=== PATIENT | male | born 1975 | race African-American/Black ===

== ENCOUNTER 2017-03-20 21:50 | Observation (INO) ==
[2017-03-20] MEDS ORDERED: ASPIRIN PO STA (22:11)
[2017-03-20 22:25] LABS: MANUAL DIFF NEEDED? NO
--- NOTE | 2017-03-20 22:27 | EKG Report ---
Test Performed on : 03/20/2017 10:05:29 PM Test Reason : CP Blood Pressure : / mmHG Vent. Rate : 074 BPM Atrial Rate : 074 BPM P-R Int : 140 ms QRS Dur : 090 ms QT Int : 362 ms P-R-T Axes : 065 049 030 degrees QTc Int : 401 ms Normal sinus rhythm. T wave abnormality, consider anterolateral ischemia Abnormal ECG No previous ECGs available Unconfirmed Result
[2017-03-20] MEDS ORDERED: LOPRESSOR PO ONE (22:40)
[2017-03-20] MEDS ORDERED: NITROGLYCERIN TOP ONE (22:40)
[2017-03-20 22:42] LABS: INR 0.84 (0.86-1.15); PROTIME 12.2 Seconds (12.1-15.5)
[2017-03-20 22:43] LABS: PTT PL 28.1 Seconds (22.6-43.9)
[2017-03-20 22:50] LABS: ALBUMIN 4.6 g/dL (3.5-5.0); CALCIUM 9.9 mg/dL (8.8-10.2); MAGNESIUM 1.9 mg/dL (1.5-2.7); POTASSIUM 3.5 mmol/L (3.5-5.1); TOTAL BILIRUBIN 0.5 mg/dL (0.20-1.00); TOTAL PROTEIN 7.6 g/dL (6.3-8.3)
[2017-03-20 22:52] LABS: BASO% 0.8 % (0.0-0.8); EOS# 0.84 X1000 (0.0-0.7); EOS% 8.3 % (0.0-10.0); HEMATOCRIT 45.7 % (42.0-52.0); IMM GRAN# 0.11 X1000 (0.0-0.04); IMM GRAN% 1.1 % (0.0-0.5); LYMPH# 3.74 X1000 (1.2-3.4); LYMPH% 36.9 % (20.5-51.1); MCV 88.6 FL (81-99); MONO# 0.93 X1000 (0.11-0.59); MONO% 9.2 % (1.7-9.3); MPV 9.9 FL (7.4-10.4); NEUT% 43.7 % (42.2-75.2); PLT 241 X1000 (130-400); RBC 5.16 XMIL (4.7-6.1)
[2017-03-20 23:10] LABS: CK INDEX 0.9 (0.0-2.5); CK-MB 2.47 ng/mL (0.0-5.0)
[2017-03-20] MEDS ORDERED: APRESOLINE IV ONE (23:29)
[2017-03-21 00:34] LABS: CK-MB 2.23 ng/mL (0.0-5.0)
--- NOTE | 2017-03-21 00:54 | EKG Report ---
Test Performed on : 03/20/2017 11:49:21 PM Test Reason : 2HR REPEAT Blood Pressure : / mmHG Vent. Rate : 075 BPM Atrial Rate : 075 BPM P-R Int : 142 ms QRS Dur : 088 ms QT Int : 380 ms P-R-T Axes : 061 055 070 degrees QTc Int : 424 ms Normal sinus rhythm. T wave abnormality, consider anterolateral ischemia Abnormal ECG When compared with ECG of 20-MAR-2017 22:05, (Unconfirmed) No significant change was found Unconfirmed Result
[2017-03-21] MEDS ORDERED: ZOFRAN IV PRN (00:59)
[2017-03-21] MEDS ORDERED: NS 1,000 ML IV ONE (00:59)
[2017-03-21] MEDS ORDERED: NITROGLYCERIN SL PRN (00:59)
[2017-03-21] MEDS: TYLENOL PO PRN ×2 (02:27→07:56)
--- NOTE | 2017-03-21 05:16 | Diag Imaging Result Doc PS360 ---
EXAM: CHEST-2 VIEWS HISTORY: CP TECHNIQUE: COMPARISON: 09/29/2015 FINDINGS: The lungs are well expanded. The heart is not enlarged. The vessels are not distended. There are no infiltrates. No pleural effusions. IMPRESSION: No acute abnormality. Electronically signed by Omid Nicole 03/21/2017 5:14 AM
--- NOTE | 2017-03-21 05:52 | EKG Report ---
Test Performed on : 03/21/2017 05:38:49 AM Test Reason : CHEST PAIN Blood Pressure : / mmHG Vent. Rate : 070 BPM Atrial Rate : 070 BPM P-R Int : 150 ms QRS Dur : 100 ms QT Int : 388 ms P-R-T Axes : 072 069 -33 degrees QTc Int : 419 ms Normal sinus rhythm. Incomplete right bundle branch block T wave abnormality, consider anterolateral ischemia Abnormal ECG When compared with ECG of 20-MAR-2017 23:49, (Unconfirmed) No significant change was found Confirmed by Chandana Martinez MD ([id number]) on 04/13/2017 7:21:26 PM
[2017-03-21 07:58] VITALS: BP 150/91
[2017-03-21] MEDS ORDERED: NORCO-5 PO ONE (08:20)
[2017-03-21 08:32] LABS: HEMATOCRIT 44.7 % (42.0-52.0); HEMOGLOBIN 15.4 g/dL (14.0-18.0); MCHC 34.5 g/dL (33-37); MCV 89.9 FL (81-99); MPV 10.4 FL (7.4-10.4); RBC 4.97 XMIL (4.7-6.1)
[2017-03-21 08:44] LABS: AGAP 9; ALBUMIN 4.3 g/dL (3.5-5.0); ALKALINE PHOSPHATASE 54 U/L (32-122); BUN 17 mg/dL (8-22); CALCIUM 9.7 mg/dL (8.8-10.2); CHLORIDE 103 mmol/L (98-107); COSMO 279; GOT 14 U/L (10-34); GPT 16 U/L (10-44); POTASSIUM 4.1 mmol/L (3.5-5.1); SODIUM 139 mmol/L (136-145); TCO2 27 mmol/L (25-35); TOTAL PROTEIN 7.4 g/dL (6.3-8.3)
[2017-03-21] MEDS ORDERED: PRINIVIL PO SCH (09:00)
--- NOTE | 2017-03-21 10:39 | HISTORY AND PHYSICAL ---
PRIMARY CARE PHYSICIAN: None. CHIEF COMPLAINT: Chest pain, epigastric abdominal pain, and nausea and vomiting. HISTORY OF PRESENTING ILLNESS: This is a 41-year-old male who presents to [facility] ER with complaints of chest pain that is intermittent, epigastric abdominal pain and states he vomited 4 times. His workup showed cardiac enzymes negative x3 sets. He was noted to have a creatinine of 1.4 but in reviewing his previous labs in August 2015 it was 1.6, so this is not a chronic issue for him and not acute. His EKG on arrival showed normal sinus rhythm at 74. His blood pressure was elevated at 176/116. He states that he does not have a primary care physician at this time and comes to the emergency room to get refills on his medications. While in the emergency room, he was given Apresoline 10 mg IV x1, metoprolol 25 mg p.o. x1, nitroglycerin 1 inch topically x1, a 325 mg aspirin x1, and Lerona 5 x1. He was admitted for further evaluation and treatment. PAST MEDICAL HISTORY: Hypertension. PAST SURGICAL HISTORY: Cyst removed from his thigh and a right finger surgery. FAMILY HISTORY: [place] in his dad who passed at an early age, in his 40s. SOCIAL HISTORY: Currently lives with his mom. Smokes tobacco occasionally. Drinks a half a case of beer 2-3 times a week. Denied any illicit drug use. ALLERGIES: Methocarbamol. HOME MEDICATIONS: He takes losartan/hydrochlorothiazide. We will have to verify that. It is unsure what blood pressure medicine he was taking. REVIEW OF SYSTEMS: He denied any fever, chills, blurred vision, dizziness. He was positive for intermittent chest pain, epigastric abdominal pain, nausea, vomiting. Denied any burning or hurting with urination. PHYSICAL EXAMINATION: VITAL SIGNS: On arrival, he had a temperature of 98 degrees, pulse 74, respirations 18, blood pressure 176/116. GENERAL: This is a 41-year-old male who is lying in the bed and answers questions appropriately. HEENT: Normocephalic and atraumatic. Pupils are equal, round, reactive to light. Extraocular movements are intact. Oropharynx and nares are clear. NECK: Supple. LUNGS: Clear to auscultation bilaterally with equal lung expansion and chest wall movement. HEART: With regular rate and rhythm. No murmurs, rubs, or gallops. ABDOMEN: Soft, nontender, nondistended. Bowel sounds are present x4 quadrants. EXTREMITIES: There is no clubbing, cyanosis, or edema. NEUROLOGICAL: The cranial nerves 2 through 12 are grossly intact. ASSESSMENT: 1. Chest pain. 2. Epigastric abdominal pain. 3. Nausea and vomiting. 4. Tobacco abuse. 5. Hypertension. PLAN: He was admitted to the medical unit at [facility]. Placed on telemetry. Placed him on lisinopril 20 mg p.o. daily, Zofran 4 mg IV q.4, normal saline at 70 mL an hour. We will recheck labs in the a.m. It is felt this is most likely related to his hypertension being uncontrolled. Dictated by NAA Pedroza for Denny Cox MD cc: NAA Pedroza MD
--- NOTE | 2017-03-21 18:53 | DISCHARGE SUMMARY ---
ADMISSION DATE: 03/21/2017 DISCHARGE DATE: 03/21/2017 PRIMARY CARE PHYSICIAN: None. ADMISSION DIAGNOSES: 1. Chest pain. 2. Hypertension. 3. Epigastric abdominal pain. 4. Nausea and vomiting. DISCHARGE DIAGNOSES: 1. Chest pain resolved. 2. Epigastric abdominal pain resolved. 3. Nausea and vomiting resolved. 4. Hypertension. SUMMARY OF FINDINGS: This is a 41-year-old male, who presented to the emergency room with complaints of intermittent chest pain, epigastric abdominal pain, nausea and vomiting. Stated he vomited 4 times. His workup was negative. His enzymes x 3 sets were negative. His chest x-ray showed no acute abnormality. His EKG showed normal sinus rhythm at 74. His blood pressure has improved. We stopped his losartan with a diuretic as his kidney function was elevated at 1.4. He does have a history of chronic kidney disease, stage 2, with a history of a creatinine of 1.[address] him on lisinopril 20 mg p.o. daily, and it is felt that we can safely discharge him home. DISCHARGE MEDICATIONS: He will have a prescription for lisinopril 20 mg 1 p.o. daily, #30 with 6 refills. FOLLOW UP: We will give him the number to the physician referral line to obtain a primary care physician and he verbalized understanding. This was a 35 minute discharge. Dictated by NAA Pedroza for Denny Cox MD cc: NAA Pedroza MD
--- NOTE | 2017-05-02 03:24 | ED EKG INTERP ---
This chart was entered by Lenora Klein Scribe, acting as scribe for Kd Puckett MD. EKG Interpretation - EKG Time of EKG reading by physician:: 23:49 EKG Read and Signed by:: Kd Pucktet EKG Interpretation (*Must complete 3 of following elements*): Abnormal Rate: 75 Rhythm: normal sinus AR Interval: normal Prior EKG Comparison: unchanged from prior Comments: t wave abnormality Attestation - Physician/ LIN Attestation The physician spent face to face time with patient:: Yes Advanced Practice Provider documentation review:: Supervising physician onsite and consulted in the evaluation and care of this patient. The physician did have a face to face encounter with the patient. This chart was documented by the indicated scribe, (Lenora Klein Scribe) and accurately reflects the services I performed and decisions made by me, Kd Puckett MD, as attested by the provider's signature.
--- NOTE | 2017-05-02 03:25 | PROVIDER DOCUMENTATION ---
This chart was entered by Lenora Klein Scribe, acting as scribe for Kd Puckett MD. HPI-Chest Pain - General Chief Complaint: Chest Pain Stated Complaint: CHEST PAIN Time Seen by Provider: 03/20/17 22:25 Source: patient Allergies/Adverse Reactions: Patient Allergies Allergy/AdvReac Type Severity Reaction Status Date / Time methocarbamol [From Robaxin] AdvReac Severe "faints" Verified 03/20/17 22:08 Home Medications: Home Medication List Medication Instructions Recorded Confirmed Last Taken Type LISINOpril [Prinivil] 20 mg PO DAILY #30 tablet 03/21/17 Unknown Rx - History of Present Illness-CP Nature of Presenting Problem: PT is a 41 y/o M that presents to ED with cc of chest pain onset yesterday. PT states it feels like his chest is swelling. PT was driving yesterday when the pain started and he states he vomited 4x. Pain has been intermittent since onset. PT states SOB started tonight along with epigastric pain. PT states he has HBP and gets his meds from the ER as he does not have a PCP. According to the PT his father of a massive heart attack at the age of 43 or 53 the pt could not remember. Location: reports: substernal, epigastric Chest Pain Radiation: reports: no radiation Quality of Pain: reports: sharp, other (swelling pain) Severity in ED: moderate Onset/Duration: abrupt, 24 hours ago Timing: still present Context/Activities at Onset: reports: rest (driving) Modifying Factors: improves with: nothing Associated Symptoms: reports: abdominal pain (epigastric), shortness of breath, vomiting. denies: back pain, diaphoresis, dizziness, edema, fever/chills, nausea Aspirin Treatment Today: provided by ED Similar Symptoms Previously?: No Recently Seen Here or By Another Healthcare Provider: No Review of Systems - Adult - REVIEW OF SYSTEMS - ADULT Constitutional: denies: chills, fever Eyes: reports: no symptoms reported Ears, Nose, Mouth & Throat: reports: no symptoms reported Cardiovascular: reports: chest pain. denies: palpitations Respiratory: reports: shortness of breath. denies: cough, wheezing Gastrointestinal: reports: abdominal pain (epigastric), vomiting. denies: diarrhea, nausea Genitourinary: reports: no symptoms reported Musculoskeletal: reports: no symptoms reported Integumentary: reports: no symptoms reported Neurological: denies: dizziness/vertigo, headache/migraines Psychiatric: reports: no symptoms reported Endocrine: reports: no symptoms reported Hematologic/Lymphatic: reports: no symptoms reported Allergic/Immunologic: reports: no symptoms reported All Other Systems: Reviewed and Negative Past History - Adult - PAST MEDICAL HISTORY-ADULT Review of Records: reports: Old Records Reviewed, Nursing Assessment Review, Medications Reviewed Cardiovascular: reports: HTN - PRIOR SURGERIES/PROCEDURES Surgical/Procedure History: reports: none, other (Cyst removal) - IMMUNIZATION STATUS Childhood Immunizations: See Nurse Assessment Flu Vaccine: See Nurse Assessment - FAMILY HISTORY Family History: reviewed, not pertinent Physical Exam-General - PHYSICAL EXAM-ADULT Initial Vital Signs Reviewed: Yes - CONSTITUTIONAL General Appearance: alert, mild distress - EYES Eyes: PERRL/EOMI, pink conjunctivae - HEAD, EARS, NOSE, MOUTH & THROAT HENMT: normocephalic/atraumatic, moist mucous membranes - NECK Neck: non-tender, full range of motion - RESPIRATORY Respiratory: chest non-tender, lungs clear, normal breath sounds - CARDIOVASCULAR Cardiovascular: regular rate, rhythm, no edema, systolic murmur - GASTROINTESTINAL (ABDOMEN) Abdominal Exam: normal bowel sounds, soft, tenderness (epigastric region) - LYMPHATIC Lymphatic: no adenopathy - MUSCULOSKELETAL Back Exam: normal inspection, no CVA tenderness, no vertebral tenderness Extremity: normal range of motion, non-tender, normal gait - SKIN Integumentary: normal color, normal turgor, warm/dry - NEUROLOGIC 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 nml as tested, grossly normal - PSYCHIATRIC Psych/Mental Status: normal mood/affect, normal thought content, oriented x 3 Progress - PLAN OF CARE/RESULTS Progress/Plan/Lab Results: Orders Category Date Time Status Admit - [facility] Routine AdmDCTranf 03/21/17 00:59 Ordered Activity - Bed Rest with BRP ORDERED Care 03/21/17 00:59 Completed Cardiac Monitoring DIRECTED Care 03/20/17 22:12 Completed Neurological Check PRN Care 03/21/17 00:59 Active Oxygen Therapy- ED Nursing DIRECTED Care 03/20/17 22:12 Completed Saline Loc NOW Care 03/20/17 22:12 Active Vital Signs Order ROUTINE Care 03/21/17 00:59 Completed Z-Document. for Tele Applied ORDERED Care 03/21/17 01:00 Completed CHEST-2 VIEWS [RAD] Stat Exams 03/20/17 22:12 Completed CBC WITH ELECTRONIC DIFF [HEME] Stat Lab 03/20/17 22:00 Completed CK PROFILE [SP CHEM] Stat Lab 03/20/17 22:00 Completed CK PROFILE [SP CHEM] Timed Lab 03/20/17 23:55 Completed COMPREHENSIVE METABOLIC PANEL [CHEM] Stat Lab 03/20/17 22:[address] D-DIMER PL [COAG] Stat Lab 03/20/17 22:00 Completed MAGNESIUM [CHEM] Stat Lab 03/20/17 22:00 Completed PRO B-NATRIURETIC PEPTIDE Stat Lab 03/20/17 22:00 Com[address]IME WITH INR PL [COAG] Stat Lab 03/20/17 22:[address] [COAG] Stat Lab 03/20/17 22:00 Completed TROPONIN T Stat Lab 03/20/17 22:00 Completed TROPONIN T Timed Lab 03/20/17 23:55 Completed TROPONIN T Timed Lab 03/21/17 05:50 Completed 0.9% Sodium Chloride Inj [Ns] 1,000 ml Med 03/21/17 00:59 Discontinued IV 70 mls/hr Acetaminophen [Tylenol] Med 03/21/17 00:59 Discontinued 650 mg PO Q6H PRN PRN Aspirin Med 03/20/17 22:11 Discontinued 325 mg PO STAT STA Hydralazine [Apresoline] Med 03/20/17 23:29 Discontinued 10 mg IV NOW ONE LISINOpril [Prinivil] Med 03/21/17 09:00 Discontinued 20 mg PO DAILY Metoprolol [Lopressor] Med 03/20/17 22:40 Discontinued 25 mg PO NOW ONE Nitroglycerin Med 03/20/17 22:40 Discontinued 1 inch TOP NOW ONE Nitroglycerin Sl [Nitroglycerin] Med 03/21/17 00:59 Discontinued 0.4 mg SL Q5M PRN PRN Ondansetron [Zofran] Med 03/21/17 00:59 Discontinued 4 mg IV Q4H PRN PRN Telemetry [OM.EQ] Routine Oth 03/21/17 00:59 Active EKG [EKG] Routine Ther 03/21/17 06:00 Completed EKG [EKG] Stat Ther 03/20/17 22:12 Draft EKG [EKG] Stat Ther 03/20/17 23:55 Draft Transfer/Admit Order [TRANSFER] Routine Transfer 03/21/17 01:10 Completed Result Diagrams: 03/21/17 05:50 03/21/17 05:50 - REASSESSMENT Reassessment #1 Time Reassessed: 23:30 Status: improving (CHEST TIGHTNESS GONE. BP STILL ELEVATED) Departure - Departure Date of Disposition Decision: 03/21/17 Time of Disposition Decision: 02:00 DIAGNOSIS: Unstable angina pectoris Disposition: ADMITTED INPATIENT 09 Certified Medical Emergency: Emergent Condition: Stable - Critical Care Note This patient required my direct & personal management of CC.: No Attestation - Physician/ LIN Attestation The physician spent face to face time with patient:: Yes Advanced Practice Provider documentation review:: Supervising physician onsite and consulted in the evaluation and care of this patient. The physician did have a face to face encounter with the patient. This chart was documented by the indicated scribe, (Lenora Klein, [employer]) and accurately reflects the services I performed and decisions made by me, Kd Puckett MD, as attested by the provider's signature.
== END 2017-03-21 10:25 | disposition home or self-care (01) ==
LOC: P.ED 21:50 → P.MEDSURG 21:50 → SUATTDRO 03-21 01:48 → P.MEDSURG 03-21 02:11
PROVIDERS: ATTEND Family Medicine